=== PATIENT | female | born 1945 | race Caucasian/White ===

== ENCOUNTER 2019-11-15 14:32 | Outpatient (CLI) | payer MEDICARE, OTHER | END 2019-11-15 14:33 | disposition EMS.NT | LOC: EMS 14:32 | PROVIDERS: ATTEND Surgery | DX: S01.21XA Laceration without foreign body of nose, initial encounter (principal); M25.511 Pain in right shoulder; W01.0XXA Fall on same level from slipping, tripping and stumbling without subsequent striking against object, initial encounter; Y92.481 Parking lot as the place of occurrence of the external cause ==

== ENCOUNTER 2019-11-15 15:21 | Emergency (ER) | payer MEDICARE, OTHER ==
[2019-11-15] MEDS ORDERED: HYDROcod/ACETAM 5/325 MG TABLET PO STA (16:08)
--- NOTE | 2019-11-15 16:11 | ED Physician Documentation ---
History of Present Illness - Stated complaint Stated Complaint: GLF - Chief complaint Chief Complaint: Trauma Ext - Additonal information Additional information: 74-year-old female here with right shoulder pain left knee pain and abrasion on her nose after a ground-level fall this afternoon when she tripped on curbing falling forward. She did not have any loss of consciousness but due to body habitus she required EMS in order to get up off the ground. She reported that she had a prolonged nasal bleed after the fall. She does have a noted abrasion on the bridge of her nose. Since the fall she has been able to bear weight on her knee but the left knee is moderately ecchymotic. However most of her pain is in the right shoulder and she is both to abduct or abduct the arm at this time. Most of the tenderness is in the proximal humeral area. No history of previous shoulder injury Review of Systems Constitutional: reports: Reviewed and negative Eyes: reports: Reviewed and negative Ears: reports: Loss of hearing Nose: reports: Epistaxis, Other (abrasion bridge of nose) Throat: reports: Reviewed and negative Cardiac: reports: Reviewed and negative Respiratory: reports: Reviewed and negative GI: reports: Reviewed and negative Skin: reports: Abrasion (s) Musculoskeletal: reports: Joint pain (left knee, right shoulder), Joint swelling Neurologic: reports: Head injury. denies: Syncope, Seizure, Confused, Altered mental status, Unresponsive, Headache Psychiatric: denies: Depressed, Suicidal PD PAST MEDICAL HISTORY - Past Medical History Past Medical History: Yes Cardiovascular: None Respiratory: None Neuro: Other Endocrine/Autoimmune: None GI: None POLITICAL ANTHROPOLOGIST: None : Incontinence HEENT: None Psych: None Musculoskeletal: None Derm: None Other Past Medical History: stress incontinence - Past Surgical History Past Surgical History: Yes Ortho: Knee replacement - Present Medications Home Medications: Ambulatory Orders Medication Instructions Recorded Confirmed Hydrocodone/Acetaminophen [Vadito 1 each PO BID PRN #15 tablet 11/15/19 5-325 Tablet] Oxymetazoline HCl [Afrin] 100 sprays MYRNA BID #1 bottle 11/15/19 Salt Irrigation Solution No.1 177 ml NS PRN PRN #1 aer.w.adap 11/15/19 [[place] Complete] - Allergies Allergies/Adverse Reactions: Allergies Allergy/AdvReac Type Severity Reaction Status Date / Time No Known Drug Allergies Allergy Verified 11/15/19 15:30 - Social History Does the pt smoke?: No Smoking Status: Never smoker Does the pt drink ETOH?: No Does the pt have substance abuse?: No - Immunizations Immunizations are current?: Yes - POLST Patient has POLST: No PD ED PE EXPANDED - General General: Alert, No acute distress, Other (morbidely obese) - HEENT HEENT: Head injury (Negative raccoon's eyes or nagy sign.), PERRL, EOMI, Right nares epsitaxis (Extensive amount of clot within both anterior nares. Tender nasal bridge with noted abrasion and ecchymosis.), Left nares epistaxis, Moist mucous membranes, Other (No trismus. No TMJ click or tenderness. No dental pain.). No: Right frontal sinus TTP, Left frontal sinus TTP, Right maxillary sinus TTP, Left maxillary sinus TTP, Oral lesions / sores, Lip laceration - Neck Neck: Supple w/out meningeal sx, No tenderness - Cardiac Cardiac: Regular Rate, Radial strong equal, Femoral strong equal, Pedal strong equal, Cap refill < 2 sec. No: Murmur Present - Respiratory Respiratory: Clear to ausultation shaye. No: Distress, Labored - Abdomen Abdomen: Normal Bowel sounds. No: Tender to palpation - Extremities Extremities: Right shoulder (Limited range of motion due to pain. Tenderness at the proximal humeral head without swelling or ecchymosis. 2+ distal radial pulse.), Left knee (Patient able to bear weight on left knee. No laxity. No tenderness over proximal tibia or fibular head. Swelling and abrasion noted over the patella with ecchymosis laterally.) - Neuro Neuro: Alert and Oriented X 3, CNII-XII intact, Cerebellar nl, Normal gait, Normal finger nose, Normal speech. No: Nystagmus - GCS Eye Opening: Spontaneous Motor: Obeys Commands Verbal: Oriented Total: 15 Results - Vitals Vitals: Vital Signs - 24 hr 11/15/19 11/15/19 15:23 15:33 Temperature 37.1 C 37.1 C Heart Rate 72 72 Respiratory 18 18 Rate Blood Pressure 179/81 H 175/80 H O2 Saturation 94 94 Oxygen O2 Source Room air - Rads (name of study) Max fac CT Radiology: Final report received (Comminuted bilateral nasal bone fractures with adjacent soft tissue hematoma and edema. Comminuted fractures of the osseous n [place] septum.) right shoulder Radiology: Final report received (No acute fracture or dislocation) left knee Radiology: Final report received (No acute fracture or dislocation) PD MEDICAL DECISION MAKING - ED course Complexity details: reviewed results, re-evaluated patient, considered differential, d/w patient, d/w family, d/w cardiology consultants (Raj PRICE) ED course: 74-year-old female presents to the emergency department for evaluation of facial trauma and right shoulder pain after a ground-level fall this evening. She reported right shoulder pain but the x-ray shows no acute fracture or dislocation. She also has a large abrasion on her left knee. X-ray does not show any fracture. She is able to ambulate. CT of the face did show a comminuted bilateral nasal bone fractures. I have discussed the full CT scanning results with Dr. Michael Anthony who is an FS surgeon. He would like to see her in office in follow-up early next week. We will recommend nasal precautions with her to include no nose blowing or overhead lifting. We will also recommend [place] nasal spray and twice daily Afrin nasal spray. Limited amount of hydrocodone has been prescribed for pain. Departure - Departure Disposition: 01 Home, Self Care Clinical Impression: Fall Qualifiers: Encounter type: initial encounter Qualified Code(s): W19.XXXA - Unspecified fall, initial encounter Nasal bone fractures Qualifiers: Encounter type: initial encounter Fracture type: closed Qualified Code(s): S02.2XXA - Fracture of nasal bones, initial encounter for closed fracture Contusion of left knee and lower leg Qualifiers: Encounter type: initial encounter Qualified Code(s): S80.02XA - Contusion of left knee, initial encounter; S80.12XA - Contusion of left lower leg, initial encounter Contusion of right shoulder Qualifiers: Encounter type: initial encounter Qualified Code(s): S40.011A - Contusion of right shoulder, initial encounter Condition: Stable Record reviewed to determine appropriate education?: Yes Instructions: Fx Nose About Ch Follow-Up: Michael Anthony DDS [Provider Admit Priv/Credential] - Prescriptions: Oxymetazoline HCl [Afrin] 100 sprays MYRNA BID #1 bottle Hydrocodone/Acetaminophen [Vadito 5-325 Tablet] 1 each PO BID PRN #15 tablet PRN Reason: Pain Salt Irrigation Solution No.1 [[place] Complete] 177 ml NS PRN PRN #1 aer.w.adap PRN Reason: Cold Symptons Comments: Ramona please call Dr. Anthony office tomorrow to schedule follow-up at his office early next week. You do have fractures of your nasal bones. It is important that you do not blow your nose over the next week until you are seen by Dr. Anthony. Also no overhead lifting. Please use the Afrin nasal spray in each nostril twice a day. Use the [place] saline spray or rinse to help with nasal discomfort and any blood that you have in your septum. The x-rays of your left knee and right shoulder do not show any broken bones. However you do have abrasions and contusions. I expect that this will start to get better in the next 3 or 4 days but over the next 2 to 3 days you will be extremely sore. I have prescribed a limited amount of Vicodin to be used for severe pain only. Please use cautiously it may make you dizzy. If at any point you develop fevers, have uncontrolled vomiting, or feel your symptoms are not well controlled please return to the emergency department
--- NOTE | 2019-11-15 17:11 | CT Report ---
PROCEDURE: MAXILLOFACIAL WO INDICATIONS: fall; eval for orbital and nasal fx TECHNIQUE: Noncontrast 1.5 mm thick axial images acquired from the mandible through the frontal sinuses, with co lila and sagittal reformatting. For radiation dose reduction, the following was used: automated ex posure control, adjustment of mA and/or kV according to patient size. COMPARISON: None. FINDINGS: Image quality: Excellent. Bones and teeth: Comminuted nasal bone fractures. Adjacent subcutaneous emphysema and hemorrhage/hem atoma and edema. There also mildly angulated and comminuted fractures of the bony nasal septum (both seen on series 3 image 12 and visualized individually on series 6 images 35-46). The bony orbital wal ls are intact. Sinus lara show no fracture or deformity. Visualized portions of the mandible demon strate no fractures or subluxation. Zygomatic arches are intact. Pterygoid plates are intact. Visu alized portions of the skull base and auditory canals are intact. Orbital structures: There is a punctate approximately 1 mm hyperdense focus in the left orbit anterio r to the globe (series 3 image 118). This could represent a drusen although the lesion is larger than typical drusen. There is a similar but much smaller punctate hyperdensity at the anterolateral aspec t of the left globe which is consistent with drusen. Ocular and orbital structures are otherwise with in normal limits. Sinuses: Paranasal sinuses are aerated, without fluid levels, mucosal thickening, or mucoceles. Mas toid air cells are aerated. Soft tissues: No edema, masses, or fluid collections. No enlarged lymph nodes. No soft tissue lace rations or debris. Vascular: Visualized vascular structures appear normal in the absence of contrast. Bony vascular fo ramina and canals are intact. IMPRESSION: Comminuted bilateral nasal bone fractures with adjacent soft tissue hematoma and edema. Comminuted fractures of the osseous nasal septum. Calcifications at the anterolateral aspects of the bilateral globes, both of which most likely repres ent age-related bruising although on the right this is larger than typically seen with this entity. C linical examination to exclude a preseptal foreign body is requested. Reviewed by: Joseph Wise MD on 11/15/2019 5:10 PM PDT Approved by: Joseph Wise MD on 11/15/2019 5:10 PM PDT Station ID: [id number]
--- NOTE | 2019-11-15 17:15 | XRAY Report ---
PROCEDURE: Knee 3 View LT INDICATIONS: FALL TECHNIQUE: 3 views of the left knee(s) were acquired. COMPARISON: None. FINDINGS: Bones: No fractures or dislocations. No suspicious bony lesions. Moderate medial and patellofemoral compartment osteophytosis. Mild lateral compartment osteoarthritis. Soft tissues: No joint effusion. No suspicious soft tissue calcifications. IMPRESSION: No fracture. No acute osseous lesion. If there is continued clinical concern for pathology, then repe at plain film radiographs (7-10 days) or advanced imaging (CT, MR, bone scan) should be considered fo r further evaluation. Reviewed by: Aaliyah Gordon MD, PhD on 11/15/2019 5:13 PM PDT Approved by: Aaliyah Gordon MD, PhD on 11/15/2019 5:13 PM PDT Station ID: [id number]
--- NOTE | 2019-11-15 17:16 | XRAY Report ---
PROCEDURE: Shoulder 3 View RT INDICATIONS: FALL TECHNIQUE: 3 views of the shoulder were acquired. COMPARISON: None. FINDINGS: Bones: No fractures or dislocations. No suspicious bony lesions. Visualized ribs appear intact. M ild acromioclavicular and glenohumeral joint osteoarthritis. Soft tissues: No suspicious soft tissue calcifications. IMPRESSION: Echo fracture acute Reviewed by: Aaliyah Gordon MD, PhD on 11/15/2019 5:15 PM PDT Approved by: Aaliyah Gordon MD, PhD on 11/15/2019 5:15 PM PDT Station ID: [id number]
[2019-11-15 18:05] VITALS: BP 135/80
== END 2019-11-15 18:02 | disposition home or self-care (01) ==
LOC: ED 15:21
DX: S02.2XXA Fracture of nasal bones, initial encounter for closed fracture (principal); S80.02XA Contusion of left knee, initial encounter; S80.12XA Contusion of left lower leg, initial encounter; S40.011A Contusion of right shoulder, initial encounter; W18.09XA Striking against other object with subsequent fall, initial encounter; Z96.659 Presence of unspecified artificial knee joint
CPT/HCPCS: 70486; 73030; 73562; 99284; A9270

== ENCOUNTER 2022-12-27 08:00 | Outpatient (CLI) | payer MEDICARE, OTHER ==
--- NOTE | 2022-12-27 11:07 | XRAY Report ---
PROCEDURE: Knee 4 View RT INDICATIONS: RIGHT KNEE PAIN TECHNIQUE: 6 views of the right knee(s) were acquired. COMPARISON: 11/15/2019 FINDINGS: Bones: Status post total right knee replacement. No pericardial hardware lucency or pericardial hard wan fracture. The left knee is partially visualized and demonstrates severe tricompartmental degener ative changes. Soft tissues: No knee joint effusion. No suspicious soft tissue calcifications or masses. IMPRESSION: Status post total right knee replacement without radiographic complication. Reviewed by: Anil Burt on 12/27/2022 11:06 AM JACOBY Approved by: Anil Burt on 12/27/2022 11:06 AM PST Station ID: [id number]
== END 2022-12-27 23:59 | disposition home or self-care (01) ==
LOC: DI.WOS 08:00
PROVIDERS: ATTEND Orthopaedic Surgery
DX: M25.561 Pain in right knee (principal); Z96.651 Presence of right artificial knee joint